=== PATIENT | female | born 1995 | race Caucasian/White ===

== ENCOUNTER 2016-06-19 13:30 | Inpatient (IN) | payer MEDICAID, OTHER ==
[~2016-06-19] VITALS: Ht 157.5 cm; Wt 76.2 kg
[2016-06-19] MEDS ORDERED: LIDOCAINE 2%, 20 ML MDV INJ ONE (13:45)
[2016-06-19] MEDS ORDERED: CEFAZOLIN 1 GM IVPB PREMIX 50 ML IV ONE (13:45)
[2016-06-19] MEDS ORDERED: NS 1000 ML BAG IV ONE (13:45)
[2016-06-19] MEDS ORDERED: LR 1,000 ML IV.SOLN IV ONE (13:45)
[2016-06-19] MEDS ORDERED: ONDANSETRON HCL 4 MG/2 ML VIAL IVP ONE (13:45)
[2016-06-19] MEDS ORDERED: MORPHINE SULFATE 10MG/10ML PF AMP EP ONE (13:45)
[2016-06-19] MEDS ORDERED: OXYTOCIN 10 UNIT/ML VIAL IV ONE (13:45)
[2016-06-19] MEDS ORDERED: OXYTOCIN/NORMAL SALINE 1,000 ML IV SCH (15:26)
[2016-06-19] MEDS ORDERED: LR 1,000 ML IV SCH (15:26)
[2016-06-19] MEDS ORDERED: NALBUPHINE HCL 10 MG/ML AMP IM PRN (15:30)
[2016-06-19] MEDS ORDERED: TERBUTALINE SULFATE 1 MG/ML VIAL SUBCUT ONE (15:30)
[2016-06-19] MEDS ORDERED: NALBUPHINE HCL 10 MG/ML AMP IVP PRN (15:30)
[2016-06-19] MEDS ORDERED: AMPICILLIN SODIUM 2 GM in NS 100 ML IV ONE (16:00)
[2016-06-19 16:03] LABS: BASOPHILS # (AUTO) 0.2 K/uL (0.0-0.2); BASOPHILS % (AUTO) 1.3 % (0.0-2.0); EOSINOPHILS # (AUTO) 0.2 K/uL (0.0-0.4); EOSINOPHILS % (AUTO) 1.4 % (0.0-4.0); HEMOGLOBIN 14.7 g/dL (12.0-16.0); LYMPHOCYTES # (AUTO) 2.1 K/uL (1.0-5.5); LYMPHOCYTES % (AUTO) 17.5 % (20.5-51.5); MEAN CORPUSCULAR HEMOGLOBIN 33 pg (27-31); MEAN CORPUSCULAR HGB CONC 34 % (32-36); MEAN CORPUSCULAR VOLUME 95 fL (79.0-98.0); MONOCYTES # (AUTO) 0.5 K/uL (0.0-1.0); MONOCYTES % (AUTO) 4.5 % (1.7-9.3); NEUTROPHILS # (AUTO) 8.8 K/uL (1.8-7.7); NEUTROPHILS % (AUTO) 75.3 % (40.0-70.0); PLATELET COUNT (AUTO) 186 K/uL (130-430); RED BLOOD CELL COUNT(AUTO) 4.51 MIL/uL (4.2-6.2); RED CELL DISTRIBUTION WIDTH 12.3 % (9.0-15.0); WHITE BLOOD COUNT (AUTO) 11.8 K/uL (4.5-11.0)
[2016-06-19] MEDS ORDERED: LR 500 ML IV ONE (16:40)
[2016-06-19] MEDS ORDERED: FENT2mCg/mL-ROPIVA0.2%/NS EPID 150 ML EP SCH (16:45)
[2016-06-19] MEDS ORDERED: fentaNYL CITRATE/PF 100 MCG/2 ML AMP EP ONE (16:45)
[2016-06-19] MEDS ORDERED: ePHEDrine sulfate 50 MG/ML VIAL IVP PRN (16:45)
[2016-06-19] MEDS: AMPICILLIN SODIUM 1 GM in NS 50 ML IV SCH (23:17)
[2016-06-20] MEDS: AMPICILLIN SODIUM 1 GM in NS 50 ML IV SCH ×2 (03:36→07:59)
[2016-06-20] MEDS ORDERED: fentaNYL CITRATE/PF 100 MCG/2 ML AMP ONE (07:13)
[2016-06-20] MEDS ORDERED: FENT2mCg/mL-ROPIVA0.2%/NS EPID 150 ML EP ONE (07:14)
[2016-06-20] MEDS ORDERED: FENT2mCg/mL-ROPIVA0.2%/NS EPID 150 ML EP SCH ×2 (07:45)
[2016-06-20] MEDS ORDERED: ePHEDrine sulfate 50 MG/ML VIAL IVP PRN ×2 (07:45)
[2016-06-20] MEDS ORDERED: LR 500 ML IV ONE ×2 (07:45)
[2016-06-20] MEDS ORDERED: fentaNYL CITRATE/PF 100 MCG/2 ML AMP EP ONE ×2 (07:45)
[2016-06-20 08:57] VITALS: BP 121/78; PULSE 64; RESP 16; TEMP 98.4
[2016-06-20] MEDS ORDERED: CALCIUM CARBONATE 500 MG/ TAB.CHEW PO PRN (09:45)
[2016-06-20] MEDS ORDERED: OXYTOCIN/NORMAL SALINE 1,000 ML IV ONE ×2 (12:12→14:45)
[2016-06-20] MEDS ORDERED: LR 1,000 ML IV SCH ×3 (12:12→14:45)
[2016-06-20] MEDS ORDERED: DOCUSATE SODIUM 100 MG CAPSULE PO PRN ×2 (12:15→14:45)
[2016-06-20] MEDS ORDERED: LANOLIN 7 GM OINT. TP PRN ×2 (12:15→14:45)
[2016-06-20] MEDS ORDERED: RHO(D) IMMUNE GLOBULIN/MALTOSE 1500 UNITS/1.3 ML (WINHRO) IM PRN ×2 (12:15→14:45)
[2016-06-20] MEDS ORDERED: BISACODYL 10 MG/SUPPOSITORY RC PRN ×2 (12:15→14:45)
[2016-06-20] MEDS ORDERED: SENNOSIDES/DOCUSATE SODIUM 1 TAB TABLET(SENOKOT-S) PO PRN ×2 (12:15→14:45)
[2016-06-20] MEDS ORDERED: MEASLES,MUMPS&RUBELLA VACC/PF 12500 UNIT/0.5 ML VIAL SUBQ PRN ×2 (12:15→14:45)
[2016-06-20] MEDS ORDERED: ANUSOL 1 EA SUPP.RECT (PREPARATION H) RC PRN ×2 (12:15→14:45)
[2016-06-20] MEDS ORDERED: CEFAZOLIN 2 GM IVPB PREMIX 50 ML IV ONE (12:30)
[2016-06-20] MEDS ORDERED: MEPERIDINE HCL/PF 25 MG/ML DISP.SYRIN IVP PRN (14:30)
[2016-06-20] MEDS ORDERED: NALOXONE HCL 0.4 MG/ML AMP (NARCAN) IVP PRN (14:30)
[2016-06-20] MEDS ORDERED: DIPHENHYDRAMINE INJ 50 MG/ML VIAL IM PRN (14:30)
[2016-06-20] MEDS ORDERED: METOCLOPRAMIDE HCL 10 MG/2 ML VIAL IVP PRN (14:30)
[2016-06-20] MEDS ORDERED: KETOROLAC TROMETHAMINE 60 MG/2 ML VIAL IM PRN (14:30)
[2016-06-20] MEDS ORDERED: ONDANSETRON HCL 4 MG/2 ML VIAL IVP PRN (14:30)
[2016-06-20] MEDS ORDERED: MEPERIDINE HCL/PF 50 MG/ML AMP IVP PRN ×2 (14:30)
[2016-06-20] MEDS ORDERED: MORPHINE SULFATE 10MG/10ML PF AMP EP SCH (14:30)
[2016-06-20] MEDS ORDERED: OXYCODONE/ACETAMINOPHEN 5-325 TABLET PO PRN (14:45)
[2016-06-20] MEDS ORDERED: ACETAMINOPHEN 325 MG TABLET PO PRN (14:45)
[2016-06-20] MEDS ORDERED: SIMETHICONE 80 MG TAB.CHEW PO PRN (14:45)
[2016-06-20 14:55] VITALS: BP 132/75
[2016-06-20] MEDS ORDERED: MEPERIDINE HCL/PF 25 MG/ML DISP.SYRIN ONE (15:07)
[2016-06-20] MEDS ORDERED: TEMAZEPAM 15 MG CAPSULE PO PRN (21:00)
[2016-06-21] MEDS: IBUPROFEN 600 MG TABLET PO SCH ×4 (06:05→23:46)
[2016-06-21] MEDS: SIMETHICONE 80 MG TAB.CHEW PO PRN ×3 (06:06→17:48)
[2016-06-21 06:44] LABS: BASOPHILS % (AUTO) 0.2 % (0.0-2.0); EOSINOPHILS # (AUTO) 0.2 K/uL (0.0-0.4); EOSINOPHILS % (AUTO) 1.4 % (0.0-4.0); HEMATOCRIT 34.2 % (36-48); HEMOGLOBIN 11.8 g/dL (12.0-16.0); LYMPHOCYTES # (AUTO) 2.3 K/uL (1.0-5.5); LYMPHOCYTES % (AUTO) 14.8 % (20.5-51.5); MEAN CORPUSCULAR HEMOGLOBIN 33 pg (27-31); MEAN CORPUSCULAR HGB CONC 35 % (32-36); MEAN CORPUSCULAR VOLUME 96 fL (79.0-98.0); MONOCYTES # (AUTO) 0.9 K/uL (0.0-1.0); NEUTROPHILS # (AUTO) 11.9 K/uL (1.8-7.7); NEUTROPHILS % (AUTO) 77.6 % (40.0-70.0); PLATELET COUNT (AUTO) 132 K/uL (130-430); RED BLOOD CELL COUNT(AUTO) 3.55 MIL/uL (4.2-6.2); RED CELL DISTRIBUTION WIDTH 12.8 % (9.0-15.0); WHITE BLOOD COUNT (AUTO) 15.3 K/uL (4.5-11.0)
[2016-06-21] MEDS: OXYCODONE/ACETAMINOPHEN 5-325 TABLET PO PRN ×4 (10:15→22:43)
[2016-06-21] MEDS ORDERED: IBUPROFEN 600 MG TABLET PO SCH (12:00)
[2016-06-22] MEDS: OXYCODONE/ACETAMINOPHEN 5-325 TABLET PO PRN ×3 (03:20→14:13)
[2016-06-22] MEDS: IBUPROFEN 600 MG TABLET PO SCH ×2 (05:41→12:14)
[2016-06-22] MEDS: SIMETHICONE 80 MG TAB.CHEW PO PRN ×2 (09:17→12:14)
== END 2016-06-22 16:55 | disposition home or self-care (01) | DRG 766 ==
LOC: SPU 13:30 → OBSVTOIN 14:30
PROVIDERS: ADMIT Obstetrics & Gynecology; ATTEND Obstetrics & Gynecology
PROC: 10D00Z1 Extraction of Products of Conception, Low, Open Approach (ICD-10-PCS; principal; 2016-06-20 13:45)
DX: O62.0 Primary inadequate contractions (principal); Z37.0 Single live birth; O77.0 Labor and delivery complicated by meconium in amniotic fluid; O36.8130 Decreased fetal movements, third trimester, not applicable or unspecified; O99.62 Diseases of the digestive system complicating childbirth; O99.824 Streptococcus B carrier state complicating childbirth; K90.0 Celiac disease; Z3A.39 39 weeks gestation of pregnancy; Z3A.40 40 weeks gestation of pregnancy; Z82.49 Family history of ischemic heart disease and other diseases of the circulatory system
CPT/HCPCS: 36415; 81002-TC; 85025; 86592; 86886; 86900; 86901; 94760; G0378; J0290; J0690; J1200; J2001; J2175; J2274; J2405; J2590; J3010; J7030; J7120